=== PATIENT | male | born 1970 | race Hispanic/Latino ===

== ENCOUNTER 2016-10-21 22:37 | Emergency (ER) | payer MEDICARE ==
[2016-10-21] MEDS ORDERED: BENADRYL IM ONE (23:55)
--- NOTE | 2016-10-22 00:01 | Emergency Department Report ---
ED ENT HPI - General Chief complaint: Dental/Oral Stated complaint: JAW PAIN/TIGHTNESS Time Seen by Provider: 10/21/16 23:36 Source: patient, EMS Mode of arrival: Stretcher Limitations: No Limitations - History of Present Illness Initial comments: 46-year-old male with a past medical history of PTSD, GERD, alcohol abuse, cocaine abuse, and bipolar disorder presents to the hospital complaining of involuntary movement of his tongue to the left and tightening of his left jaw. Symptoms started about 9 PM. Patient reports that he received Benadryl IM earlier today. Per MAR patient received Benadryl 50 mg IM at 17:45 for hives. Patient reports that his Zoloft dosage was increased today prior to symptom onset. Patient reports that he has similar reaction in the 90s after receiving a psychiatric medication but has not had any since. He has allergies to multiple anti-psychotic and reports a sensitivity to medication. Patient reports that during symptom onset his throat also felt tightness but that has since improved. - Related Data Home Medications Medication Instructions Recorded Confirmed Last Taken Effexor XR 37.5 mg PO DAILY 12/08/14 12/08/14 Unknown Ranitidine HCl 150 mg PO BID 12/08/14 12/08/14 Unknown Wellbutrin 150 mg PO DAILY 12/08/14 12/08/14 Unknown Allergies Allergy/AdvReac Type Severity Reaction Status Date / Time aripiprazole [From Abilify] Allergy Unknown Verified 10/21/16 22:49 haloperidol [From Haldol] Allergy Unknown Verified 10/21/16 22:50 haloperidol lactate Allergy Unknown Verified 10/21/16 22:50 [From Haldol] Penicillins Allergy Unknown Verified 04/06/14 02:59 ziprasidone HCl [From Geodon] Allergy Unknown Verified 10/21/16 22:49 ziprasidone mesylate Allergy Unknown Verified 10/21/16 22:49 [From Geodon] ED Dental HPI - General Chief complaint: Dental/Oral Stated complaint: JAW PAIN/TIGHTNESS Time Seen by Provider: 10/21/16 23:36 Source: patient, EMS Mode of arrival: Stretcher Limitations: No Limitations - Related Data Home Medications Medication Instructions Recorded Confirmed Last Taken Effexor XR 37.5 mg PO DAILY 12/08/14 12/08/14 Unknown Ranitidine HCl 150 mg PO BID 12/08/14 12/08/14 Unknown Wellbutrin 150 mg PO DAILY 12/08/14 12/08/14 Unknown Allergies Allergy/AdvReac Type Severity Reaction Status Date / Time aripiprazole [From Abilify] Allergy Unknown Verified 10/21/16 22:49 haloperidol [From Haldol] Allergy Unknown Verified 10/21/16 22:50 haloperidol lactate Allergy Unknown Verified 10/21/16 22:50 [From Haldol] Penicillins Allergy Unknown Verified 04/06/14 02:59 ziprasidone HCl [From Geodon] Allergy Unknown Verified 10/21/16 22:49 ziprasidone mesylate Allergy Unknown Verified 10/21/16 22:49 [From Geodon] ED Review of Systems ROS: Stated complaint: JAW PAIN/TIGHTNESS Other details as noted in HPI Comment: All other systems reviewed and negative Other: Constitutional: No fevers chills Eyes: No eye pain visual changes ENT: as per hpi Neck: Denies pain Respiratory: Denies cough wheezing shortness of breath Cardiovascular: Denies chest pain, palpitations, syncope GI: Denies abdominal pain, nausea, vomiting, diarrhea : Denies dysuria Musculoskeletal: Denies back pain Skin: Denies rash, lesions, erythema Neurologic: Denies headache, numbness, weakness Psychiatric: Denies suicidal ideation, hallucinations ED Past Medical Hx - Past Medical History Previous Medical History?: Yes Hx Hypertension: No Hx GERD: Yes Hx Liver Disease: No Hx Renal Disease: No Hx Seizures: No Hx Psychiatric Treatment: Yes (PTSD (on disability for this),major depression, bipolar.) Additional medical history: pluerisy - Surgical History Past Surgical History?: Yes Additional Surgical History: groin sgx. - Social History Smoking Status: Former Smoker Substance Use Type: Cocaine, Marijuana - Medications Home Medications: Home Medications Medication Instructions Recorded Confirmed Last Taken Type Effexor XR 37.5 mg PO DAILY 12/08/14 12/08/14 Unknown History Ranitidine HCl 150 mg PO BID 12/08/14 12/08/14 Unknown History Wellbutrin 150 mg PO DAILY 12/08/14 12/08/14 Unknown History ED Physical Exam - General Limitations: No Limitations - Other Other exam information: General: No limitations, patient is alert in no acute distress Head exam: Atraumatic, normocephalic Eyes exam: Normal appearance, pupils equal reactive to light, extraocular movements intact ENT: Moist mucous membrane, patient's jaw moves freely while talking without signs of trismus. Patient complains of pain along masseter muscles and state they feel tight on the left side. Patient's tongue is moving around in between talking but patient is able to communicate without difficulty. When asked to stick his tongue straight out his tongue moves around into the left. The patient does have periods of his tongue and not moving Neck exam: Normal inspection, full range of motion, nontender Respiratory exam: Clear to auscultation bilateral, no wheezes, rales, crackles Cardiovascular: Normal rate and rhythm, normal heart sounds Abdomen: Soft, nondistended, and nontender, with normal bowel sounds, no rebound, or guarding Extremity: Full range of motion normal inspection no deformity Back: Normal Inspection, full range of motion, no tenderness Neurologic: Alert, oriented x3, cranial nerves intact, no motor or sensory deficit Psychiatric: normal affect, normal mood Skin: Warm, dry, intact ED Course Vital Signs 10/21/16 10/22/16 22:50 01:13 Temperature 98.0 F Pulse Rate 60 61 Respiratory 17 16 Rate Blood Pressure 112/77 Blood Pressure 112/77 99/70 [Left] O2 Sat by Pulse 97 98 Oximetry - Reevaluation(s) Reevaluation #1: 10/22/16 02:02 Patient see Benadryl 50 mg IM and currently states that his symptoms have greatly improved. He no longer feels that his left cheek muscles are tight in his tongue is no longer pulling to the left ED Medical Decision Making - Medical Decision Making Plan to discharge patient back to the psychiatric hospital. He will likely need some adjustments in medications since his current meds have caused a dystonic reaction - Differential Diagnosis dystonic reaction, involuntary movement, TMJ Critical Care Time: No Critical care attestation.: If time is entered above; I have spent that time in minutes in the direct care of this critically ill patient, excluding procedure time. ED Disposition Clinical Impression: Acute dystonic reaction due to drugs, Bipolar disorder Disposition: DC-01 TO HOME OR SELFCARE Is pt being admited?: No Does the pt Need Aspirin: No Condition: Stable Instructions: Adverse Drug Reaction (ED) Additional Instructions: Symptoms appear to be a dystonic reaction to the increased dose of Zoloft. Please reconsider current dose and medication treatment. Referrals: JUN CEBALLOS MD [Primary Care Provider] - 3-5 Days Time of Disposition: 02:08
[2016-10-22 01:19] VITALS: BP 99/70
== END 2016-10-22 02:34 | disposition home or self-care (01) ==
LOC: ED 22:37
DX: G24.02 Drug induced acute dystonia (principal); R25.8 Other abnormal involuntary movements; F31.9 Bipolar disorder, unspecified; K21.9 Gastro-esophageal reflux disease without esophagitis; Z87.891 Personal history of nicotine dependence; F12.10 Cannabis abuse, uncomplicated; Z88.8 Allergy status to other drugs, medicaments and biological substances; Z88.0 Allergy status to penicillin
CPT/HCPCS: 96372; 99283; J1200

== ENCOUNTER 2017-05-01 02:49 | Emergency (ER) | payer MEDICARE ==
[2017-05-01 04:14] VITALS: BP 148/107
[2017-05-01] MEDS ORDERED: TORADOL IM ONE (04:14)
[2017-05-01] MEDS ORDERED: ZOFRAN IM ONE (04:15)
[2017-05-01] MEDS ORDERED: RABAVERT RABIES VACCINE(PCEC) IM ONE (04:42)
[2017-05-01] MEDS ORDERED: hyperRAB S/D IM ONE (04:42)
[2017-05-01] MEDS ORDERED: BOOSTRIX IM ONE (04:59)
[2017-05-01] MEDS ORDERED: ROCEPHIN IM ONE (05:19)
[2017-05-01] MEDS ORDERED: XYLOCAINE 1% MPF 5 mL INFILTRATI ONE (05:19)
[2017-05-01] MEDS ORDERED: ULTRAM PO ONE (05:35)
[2017-05-01] MEDS ORDERED: ULTRAM ONE (05:36)
--- NOTE | 2017-05-01 05:40 | Emergency Department Report ---
ED Animal Bite HPI - General Chief Complaint: Animal Bite Stated Complaint: BITTEN BY A RAT Time Seen by Provider: 05/01/17 04:42 Source: patient Mode of arrival: Stretcher Limitations: No Limitations - History of Present Illness Initial Comments: This is a 46-year-old male nontoxic, well nourished in appearance, no acute signs of distress presents to the ED with c/o of hand and swelling of the left hand. Patient stated this morning around 2 AM he was bitten by a rodent. Patient denies any other trauma. Patient described pain as aching with level of 8 out of 10. Patient denies any chest pain, shortness breath, fever, chills , nausea, vomiting, headache, stiff neck. Patient states allergies to Haldol, Geodon, and penicillin. Patient stated penicillin allergy was told by mother the patient that he takes and has been taking amoxicillin with no allergy. Patient states past medical history includes PTSD, major depression, GERD, bipolar. Denies known last tetanus shot. MD Complaint: animal bite -: This morning Left: Hand Animal: rodent Mechanism: bite Pain Description: sharp, burning, constant Severity scale (0 -10): 8 Context: unprovoked Associated Symptoms: erythema. denies: discharge from wound, bleeding, fever, chills, rash, loss of consciousness, cough, headache, diaphoresis, shortness of breath - Related Data Home Medications Medication Instructions Recorded Confirmed Last Taken Effexor XR 37.5 mg PO DAILY 12/08/14 12/08/14 Unknown Ranitidine HCl 150 mg PO BID 12/08/14 12/08/14 Unknown Wellbutrin 150 mg PO DAILY 12/08/14 12/08/14 Unknown Previous Rx's Medication Instructions Recorded Last Taken Type Amoxicillin/K Clav Tab [Augmentin 1 tab PO Q12HR #20 tab 05/01/17 Unknown Rx 875 mg] traMADol [Ultram] 50 mg PO Q6HR PRN #12 tablet 05/01/17 Unknown Rx Allergies Allergy/AdvReac Type Severity Reaction Status Date / Time aripiprazole [From Abilify] Allergy Unknown Verified 10/21/16 22:49 haloperidol [From Haldol] Allergy Unknown Verified 10/21/16 22:50 haloperidol lactate Allergy Unknown Verified 10/21/16 22:50 [From Haldol] Penicillins Allergy Unknown Verified 04/06/14 02:59 ziprasidone HCl [From Geodon] Allergy Unknown Verified 10/21/16 22:49 ziprasidone mesylate Allergy Unknown Ver[facility] 10/21/16 22:[facility] ED Review of Systems ROS: Stated complaint: BITTEN BY A RAT Other details as noted in HPI Constitutional: denies: chills, fever Eyes: denies: eye pain, eye discharge, vision change ENT: denies: ear pain, throat pain Respiratory: denies: cough, shortness of breath, wheezing Cardiovascular: denies: chest pain, palpitations Endocrine: no symptoms reported Gastrointestinal: denies: abdominal pain, nausea, diarrhea Genitourinary: denies: urgency, dysuria Musculoskeletal: denies: back pain, joint swelling, arthralgia Skin: denies: rash, lesions Neurological: denies: headache, weakness, paresthesias Psychiatric: denies: anxiety, depression Hematological/Lymphatic: denies: easy bleeding, easy bruising ED Past Medical Hx - Past Medical History Hx Hypertension: No Hx GERD: Yes Hx Liver Disease: No Hx Renal Disease: No Hx Seizures: No Hx Psychiatric Treatment: Yes (PTSD (on disability for this),major depression, bipolar.) Additional medical history: pluerisy - Surgical History Past Surgical History?: No Additional Surgical History: groin sgx. - Social History Smoking Status: Never Smoker Substance Use Type: None - Medications Home Medications: Home Medications Medication Instructions Recorded Confirmed Last Taken Type Effexor XR 37.5 mg PO DAILY 12/08/14 12/08/14 Unknown History Ranitidine HCl 150 mg PO BID 12/08/14 12/08/14 Unknown History Wellbutrin 150 mg PO DAILY 12/08/14 12/08/14 Unknown History Amoxicillin/K Clav Tab [Augmentin 1 tab PO Q12HR #20 tab 05/01/17 Unknown Rx 875 mg] traMADol [Ultram] 50 mg PO Q6HR PRN #12 tablet 05/01/17 Unknown Rx ED Physical Exam - General Limitations: No Limitations General appearance: alert, in no apparent distress - Head Head exam: Present: atraumatic, normocephalic - Eye Eye exam: Present: normal appearance - ENT ENT exam: Present: mucous membranes moist - Neck Neck exam: Present: normal inspection - Respiratory Respiratory exam: Present: normal lung sounds bilaterally. Absent: respiratory distress, wheezes, rales, rhonchi, stridor, chest wall tenderness, accessory muscle use, decreased breath sounds, prolonged expiratory - Cardiovascular Cardiovascular Exam: Present: regular rate, normal rhythm, normal heart sounds. Absent: bradycardia, tachycardia, irregular rhythm, systolic murmur, diastolic murmur, rubs, gallop - GI/Abdominal GI/Abdominal exam: Present: soft, normal bowel sounds. Absent: distended, tenderness, guarding, rebound, rigid, diminished bowel sounds - Rectal Rectal exam: Present: deferred - Extremities Exam Extremities exam: Present: normal inspection, full ROM, tenderness, normal capillary refill. Absent: pedal edema, joint swelling, calf tenderness - Expanded Upper Extremity Exam Left General: Present: normal inspection Shoulder Exam: Present: normal inspection, full ROM Upper Arm exam: Present: normal inspection, full ROM Elbow exam: Present: normal inspection, full ROM Forearm Wrist exam: Present: normal inspection, full ROM Hand Wrist exam: Present: normal inspection, full ROM, tenderness, swelling. Absent: abrasion, laceration, ecchymosis, deformity, crepidus, dislocation, erythema, amputation, nail avulsion, subungual hematoma Hand L/R Back: 1 - bite Neuro motor exam: Present: wrist extension intact, thumb opposition intact, thumb IP flexion intact, thumb adduction intact, fingers 2-5 abduction intact Neurosensory exam: Present: 2-point discrimination, radial nerve intact, ulnar nerve intact, median nerve intact Vascular: Present: vascular compromise, normal capillary refill, radial pulse, brachial pulse, ulnar pulse - Back Exam Back exam: Present: normal inspection, full ROM - Neurological Exam Neurological exam: Present: alert, oriented X3, CN II-XII intact, normal gait, reflexes normal - Psychiatric Psychiatric exam: Present: normal affect, normal mood - Skin Skin exam: Present: warm, dry, intact, normal color. Absent: rash ED Course Vital Signs 05/01/17 04:05 Temperature 97.6 F Pulse Rate 72 Blood Pressure 148/107 O2 Sat by Pulse 98 Oximetry - Reevaluation(s) Reevaluation #1: 05/01/17 05:42 Patient is speaking in full sentences with no signs of distress noted. Critical care attestation.: If time is entered above; I have spent that time in minutes in the direct care of this critically ill patient, excluding procedure time. ED Disposition Clinical Impression: Animal bite Disposition: DC-01 TO HOME OR SELFCARE Is pt being admited?: No Does the pt Need Aspirin: No Condition: Stable Instructions: Amoxicillin/Clavulanate Potassium (By mouth), Acute Wound Care ( ED), Rabies Immune Globulin (Injection), Rabies Vaccine (Injection) Additional Instructions: Follow-up with a primary care doctor in 3-5 days or if symptoms worsen and continue return to emergency room as soon as possible. Return to the emergency room on days of 05/04/2017, 05/08/2017 and 05/15/2017 to finish rabies series of vaccine. Prescriptions: Amoxicillin/K Clav Tab [Augmentin 875 mg] 1 tab PO Q12HR #20 tab traMADol [Ultram] 50 mg PO Q6HR PRN #12 tablet PRN Reason: Pain Referrals: PRIMARY CAREMD [Primary Care Provider] - 3-5 Days JUN GLOVER MD [Staff Physician] - 3-[address] [facility] [Outside] - 3-5 Days [facility] [Outside] - 3-5 Days ED Medical Decision Making - Medical Decision Making this is a 46-year-old male that presents with animal bite. Patient is stable and was examined by me. Patient received tetanus and Rocephin in the ED. Heart 80 patient received Toradol and Zofran. The wound has been cleaned with water and soap and then betadine used to the area. Patient received rabies vaccine . I personally gave patient a rabies immunoglobulin with about 5 ml of injections to the region and the rest of the left upper muscular deltoid extremity. Patient is discharge with augmentin. Patient was instructed to come back to the ED on 05/04/2017, 05/08/2017 and then on 05/15/2017. Patient was instructed and educated on proper wound care. At time time of discharge, the patient does not seem toxic or ill in appearance. No acute signs of distress noted. Patient agrees to discharge treatment plan of care. No further questions noted by the patient.
== END 2017-05-01 06:00 | disposition home or self-care (01) ==
LOC: ED 02:49
DX: S61.452A Open bite of left hand, initial encounter (principal); K21.9 Gastro-esophageal reflux disease without esophagitis; F32.9 Major depressive disorder, single episode, unspecified; F43.10 Post-traumatic stress disorder, unspecified; Z88.0 Allergy status to penicillin; Z88.8 Allergy status to other drugs, medicaments and biological substances; W53.81XA Bitten by other rodent, initial encounter; Y93.89 Activity, other specified; Y92.89 Other specified places as the place of occurrence of the external cause; Y99.8 Other external cause status
CPT/HCPCS: 90375; 90471; 90472; 90675; 90715; 96372; 99283; J0696; J1885; J2405